=== PATIENT | female | born 1960 | race Caucasian/White ===

== ENCOUNTER 2017-08-08 19:20 | Emergency (ER) | payer OTHER ==
[~2017-08-08] VITALS: Ht 157.5 cm; Wt 64.5 kg
[~2017-08-08 19:20] MED LIST: HYDR-3498 PO; IBUP-1542 PO
[2017-08-08 19:27] VITALS: Ht 157.5 cm; Wt 64.5 kg
--- NOTE | 2017-08-09 01:56 | RADRPT ---
PROCEDURE: CT abdomen and pelvis without intravenous contrast. CLINICAL INDICATION: Pain. TECHNIQUE: CT of the abdomen/pelvis was performed utilizing axial images with reconstructions in s agittal and coronal planes. The administered radiation dose is CTDI 8.6 mGy, DLP 463 mGy-cm. One or more of the following dose reduction techniques were used: automated exposure control, adjustment of the mA and/or kV according to patient size and/or use of iterative reconstruction technique. COMPARISON: No pertinent prior examinations were submitted for comparison. FINDINGS: Visualized Chest: The visualized lung bases are clear. Abdomen: The liver, spleen, pancreas, gallbladder,and adrenal glands are unremarkable. The kidneys are without hydronephrosis. No definite urinary calculi are seen. There is no evidence of bowel obstruction. The appendix is normal. No intra-abdominal free air is seen. There is no evidence of intra-abdominal adenopathy or free fluid. Pelvis: Prior hysterectomy is noted. The urinary bladder is unremarkable. There is no pelvic adenopathy of free fluid. Osseous structures: Some scoliosis of the lumbar spine is noted. IMPRESSION: No acute findings. RPTAT: HIKT .Haroon Pierce MD, Date Time Electronically viewed and signed by .Haroon Pierce MD, on 08/09/2017 01:56 .T/
[2017-08-09 02:23] LABS: BASOPHIL # 0.1 10^3/ul (0.0-0.1); BASOPHILS % 0.8 % (0.0-2.0); EOSINOPHILS # 0.1 10^3/ul (0.0-0.5); EOSINOPHILS % 1.4 % (0.0-7.0); HEMATOCRIT 39.1 % (37.0-47.0); LYMPHOCYTES # 2.8 10^3/ul (0.8-2.9); LYMPHOCYTES % 43.5 % (15.0-51.0); MEAN CORPUSCULAR HEMOGLOBIN 31.1 pg (29.0-33.0); MEAN CORPUSCULAR HGB CONC 33.2 g/dl (32.0-37.0); MEAN CORPUSCULAR VOLUME 93.5 fl (82.0-101.0); MONOCYTE # 0.6 10^3/ul (0.3-0.9); MONOCYTES % 8.6 % (0.0-11.0); NEUTROPHILS % 45.5 % (39.0-77.0); PLATELET COUNT 261 10^3/UL (140-415); RED BLOOD COUNT 4.18 10^6/ul (4.20-5.40); RED CELL DISTRIBUTION WIDTH 13.2 % (11.5-14.5); WHITE BLOOD COUNT 6.5 10^3/ul (4.8-10.8)
[2017-08-09 02:38] LABS: INR 0.93; PROTIME 12.5 Sec (12.2-14.2)
[2017-08-09 02:39] LABS: PARTIAL THROMBOPLASTIN TIME 28.8 Sec (25.0-35.0)
[2017-08-09 02:51] LABS: ALBUMIN 4.4 g/dl (3.3-4.9); ALBUMIN/GLOBULIN RATIO 1.29; BILIRUBIN,INDIRECT 0.1 mg/dl (0-1.1); BILIRUBIN,TOTAL 0.1 mg/dl (0.2-1.3); CALCIUM 9.3 mg/dl (8.4-10.2); CREATININE 0.85 mg/dl (0.44-1.00); POTASSIUM 3.8 mmol/L (3.5-5.1); TOTAL PROTEIN 7.8 g/dl (6.1-8.1)
--- NOTE | 2017-08-09 04:17 | ERD ---
ER Documentation Chief Complaint Chief Complaint blood in stool x 4 days HPI This is a 56-year-old female comes in blood in stool 4 days. No nausea no vomiting no chills. No abdominal pain. No other current complaints. ROS All systems reviewed and are negative except as per history of present illness. Medications Home Meds Active Scripts Hydrocodone Bit-Acetaminophen* ([place]*) 5-325 Mg Tab, 1 TAB PO Q6 Y for PAIN, # 14 TAB Prov:KWAKU NORWOOD PA-C 05/14/15 Ibuprofen* (Motrin*) 600 Mg Tab, 600 MG PO Q6H Y for PAIN AND OR ELEVATED TEMP, #30 Prov:KWAKU NORWOOD PA-C 05/14/15 Allergies Allergies: Coded Allergies: No Known Allergy (Unverified , 08/08/17) PMhx/Soc History of Surgery: Yes (total hysterectomy, thyroidectomy) Hx Neurological Disorder: Yes (migraines) Hx Alcohol Use: Yes (1x per mo) Hx Substance Use: No Hx Tobacco Use: No Smoking Status: Never smoker Physical Exam Vitals Vital Signs Date Time Temp Pulse Resp B/P Pulse Ox O2 Delivery O2 Flow Rate FiO2 08/08/17 19:27 97.6 96 20 132/82 97 Physical Exam Const: [] Head: Atraumatic Eyes: Normal Conjunctiva ENT: Normal External Ears, Nose and Mouth. Neck: Full range of motion..~ No meningismus. Resp: Clear to auscultation bilaterally Cardio: Regular rate and rhythm, no murmurs Abd: Soft, non tender, non distended. Normal bowel sounds Skin: No petechiae or rashes Back: No midline or flank tenderness Ext: No cyanosis, or edema Neur: Awake and alert Psych: Normal Mood and Affect Result Diagram: 08/09/1713608/09/17136 Results 24 hrs Laboratory Tests Test 08/09/17 01:37 White Blood Count 6.510^3/ul Red Blood Count 4.1810^6/ul Hemoglobin 13.0g/dl Hematocrit 39.1% Mean Corpuscular Volume 93.5fl Mean Corpuscular Hemoglobin 31.1pg Mean Corpuscular Hemoglobin Concent 33.2g/dl Red Cell Distribution Width 13.2% Platelet Count 65738^3/UL Mean Platelet Volume 10.0fl Neutrophils % 45.5% Lymphocytes % 43.5% Monocytes % 8.6% Eosinophils % 1.4% Basophils % 0.8% Nucleated Red Blood Cells % 0.0/100WBC Neutrophils # 3.010^3/ul Lymphocytes # 2.810^3/ul Monocytes # 0.610^3/ul Eosinophils # 0.110^3/ul Basophils # 0.110^3/ul Nucleated Red Blood Cells # 0.010^3/ul Prothrombin Time 12.5Sec Prothrombin Time Ratio 1.0 INR International Normalized Ratio 0.93 Activated Partial Thromboplast Time 28.8Sec Sodium Level 145mmol/L Potassium Level 3.8mmol/L Chloride Level 106mmol/L Carbon Dioxide Level 28mmol/L Anion Gap 15 Blood Urea Nitrogen 19mg/dl Creatinine 0.85mg/dl Glucose Level 91mg/dl Calcium Level 9.3mg/dl Total Bilirubin 0.1mg/dl Direct Bilirubin 0.00mg/dl Indirect Bilirubin 0.1mg/dl Aspartate Amino Transf (AST/SGOT) 27IU/L Alanine Aminotransferase (ALT/SGPT) 38IU/L Alkaline Phosphatase 74IU/L Total Protein 7.8g/dl Albumin 4.4g/dl Globulin 3.40g/dl Albumin/Globulin Ratio 1.29 Lipase 170U/L Procedures/MDM Medical decision-making: This 56-year-old female who has what looks to be hemorrhoids. At this point is clinically stable. Patient be discharged from a stool softeners and Proctofoam. Patient will return in 8 hours for serial exams. Told return sooner for any bleeding. Departure Diagnosis: Primary Impression: Occult blood in stools Condition: Stable BRIAN MACKEY Aug 09, 2017 04:17
[2017-08-09] MEDS ORDERED: DOCU-144 PO (04:18)
[2017-08-09] MEDS ORDERED: HYDR10FO PR (04:18)
[2017-08-09 04:33] VITALS: BP 126/77; PULSE 68; RESP 20; TEMP 98.1
== END 2017-08-09 04:34 | disposition home or self-care (01) ==
LOC: E/R 19:20
DX: K92.1 Melena (principal)
CPT/HCPCS: 36415; 74176; 80053; 83690; 85025; 85610; 85730; Z7502

== ENCOUNTER 2018-10-12 07:59 | Emergency (ER) | END 2018-10-12 09:41 | disposition home or self-care (01) ==

== ENCOUNTER 2019-05-20 10:05 | Emergency (ER) | payer BC, OTHER ==
[~2019-05-20] VITALS: Ht 157.5 cm; Wt 6.4 kg
[~2019-05-20 10:05] MED LIST changes: +BENZ-6 PO; +DOCU-144 PO; +GUAI5SYR2 PO; +HYDR10FO PR; +NITR-58 PO
[2019-05-20 10:06] VITALS: Ht 157.5 cm; Wt 6.4 kg
--- NOTE | 2019-05-20 11:26 | ERD ---
ER Documentation Chief Complaint Chief Complaint cough & fever x1wk, worse last night HPI 58-year-old female presents to ED for cough x2 weeks. She reports that her boss was recently diagnosed with pneumonia for the past 2 weeks as well and she has concerns that she may have pneumonia. She reports the cough is been mostly dry. She has not recorded any fevers but states she has felt warm at nights. She has not taken any medication for her cough. She denies smoking, asthma history, COPD history. Her only past medical history is chronic back pain. ROS All systems reviewed and are negative except as per history of present illness. Medications Home Meds Active Scripts Guaifenesin-Dextromethorphan* (Robitussin* DM) 100MG/10MG/5ML Syrup, 10 ML PO Q4H PRN for COUGH for 7 Days, ML Prov:JOY ROBLEDO PA-C 05/20/19 Benzonatate* (Tessalon Perle*) 100 Mg Capsule, 100 MG PO Q8H PRN for COUGH, #30 CAP Prov:JOY ROBLEDO PA-C 05/20/19 Nitrofurantoin Monohyd Macrocr* (Macrobid*) 100 Mg Capsr, 100 MG PO BID for 5 Days, CAP Prov:GARCÍA ROGEL PA-C 10/12/18 Docusate Sodium* (Colace*) 100 Mg Capsule, 100 MG PO TID, #30 CAP Prov:BRIAN MACKEY 08/09/17 Hydrocortisone/Pramoxine* (Proctofoam-HC*) 1%-10 Gm Foam, 1 APPLIC CO BID for 7 Days, EA Prov:BRIAN MACKEY 08/09/17 Hydrocodone Bit-Acetaminophen* ([place]*) 5-325 Mg Tab, 1 TAB PO Q6 PRN for PAIN, #14 TAB Prov:KWAKU NORWOOD PA-C 05/14/15 Ibuprofen* (Motrin*) 600 Mg Tab, 600 MG PO Q6H PRN for PAIN AND OR ELEVATED TEMP, #30 Prov:KWAKU NORWOOD PA-C 05/14/15 Allergies Allergies: Coded Allergies: No Known Allergy (Unverified , 05/20/19) PMhx/Soc History of Surgery: Yes (total hysterectomy, thyroidectomy) Hx Neurological Disorder: Yes (migraines) Hx Alcohol Use: Yes (1x per mo) Hx Substance Use: No Hx Tobacco Use: No Smoking Status: Never smoker FmHx Family History: No diabetes Physical Exam Vitals Vital Signs Date Temp Pulse Resp B/P (MAP) Pulse Ox O2 O2 Flow FiO2 Time Delivery Rate 05/20/19 95 21 122/67 97 Room Air 11:31 (85) 05/20/19 98.8 109 20 125/72 98 10:06 (89) Physical Exam Const: No acute distress Head: Atraumatic Neck: Full range of motion. Resp: Clear to auscultation bilaterally Cardio: Regular rate and rhythm, Abd: Soft, non tender, non distended. Ext: No cyanosis, or edema Neur: Awake and alert Psych: Normal Mood and Affect Result Diagram: 05/20/19 1057 05/20/19 1057 Results 24 hrs Laboratory Tests Test 05/20/19 10:57 White Blood Count 7.3 10^3/ul Red Blood Count 4.60 10^6/ul Hemoglobin 14.3 g/dl Hematocrit 42.6 % Mean Corpuscular Volume 92.6 fl Mean Corpuscular Hemoglobin 31.1 pg Mean Corpuscular Hemoglobin Concent 33.6 g/dl Red Cell Distribution Width 13.2 % Platelet Count 257 10^3/UL Mean Platelet Volume 9.8 fl Immature Granulocytes % 0.300 % Neutrophils % 64.2 % Lymphocytes % 24.3 % Monocytes % 10.1 % Eosinophils % 0.3 % Basophils % 0.8 % Nucleated Red Blood Cells % 0.0 /100WBC Immature Granulocytes # 0.020 10^3/ul Neutrophils # 4.7 10^3/ul Lymphocytes # 1.8 10^3/ul Monocytes # 0.7 10^3/ul Eosinophils # 0.0 10^3/ul Basophils # 0.1 10^3/ul Nucleated Red Blood Cells # 0.0 10^3/ul Sodium Level 142 mmol/L Potassium Level 4.4 mmol/L Chloride Level 105 mmol/L Carbon Dioxide Level 26 mmol/L Anion Gap 11 Blood Urea Nitrogen 12 mg/dl Creatinine 0.99 mg/dl Est Glomerular Filtrat Rate mL/min 58 mL/min Glucose Level 103 mg/dl Calcium Level 9.6 mg/dl Procedures/MDM ED COURSE: The patient was stable throughout ED course. I kept the patient informed of laboratory and diagnostic imaging results throughout the ED course. DIAGNOSTIC IMAGING: Read by radiologist. PROCEDURE: XR Chest. CLINICAL INDICATION: Pain . TECHNIQUE: Single frontal chest x-ray. COMPARISON: None. FINDINGS: The lungs are clear of acute infiltrates, edema, effusions, or masses.. The cardiomediastinal silhouette is unremarkable. The osseous structures are intact. IMPRESSION: No acute cardiopulmonary disease. RPTAT: QQ .Edward Decker MD, MD Date Time Electronically viewed and signed by .Edward Decker MD, on 05/20/2019 11:19 MEDICAL DECISION MAKING: Patient is a 58-year-old female complaining of cough x2 weeks. I have low suspicion for pneumonia, pulmonary embolism, pleural effusion, pneumothorax, ACS. Patient has been reporting a dry cough but states that her boss has been recently diagnosed with pneumonia and she has concerns that she may also have pneumonia. She is asking for us to check for pneumonia. On physical exam she had a O2 sat of 90% with no signs of respiratory distress. The x-ray imaging was done showing no signs of cardiopulmonary abnormalities. Lab work was within normal limits. At this time I think patient is suffering from an acute cough. She is discharged with Ladonna Casey and Dhruv. All questions answered. Vital signs were reviewed. Patient is afebrile. Patient was not hypoxic. Patient was hemodynamically stable. Patient was told to follow up with primary care for further care and management. PRESCRIPTION: Sabrina Franco-ANGEL DISCHARGE: At this time, patient is stable for discharge and outpatient management. I have instructed the patient to follow-up with their primary care physician in 1-2 days. I have discussed with the patient the possibility of needing to see a specialist for further workup and imaging studies if symptoms persist. I have instructed the patient to promptly return to the ER for any new or worsening symptoms including increased pain, fever, nausea, vomiting, weakness or LOC. The patient expressed understanding of and agreement with this plan. All questions were answered. Home care instructions were provided. Disclaimer: Inadvertent spelling and grammatical errors are likely due to EHR/dictation software use and do not reflect on the overall quality of patient care. Also, please note that the electronic time recorded on this note does not necessarily reflect the actual time of the patient encounter. Departure Diagnosis: Primary Impression: Cough Condition: Fair Patient Instructions: Cough, Chronic, Uncertain Cause, (Adult) Referrals: [facility] YOU HAVE RECEIVED A MEDICAL SCREENING EXAM AND THE RESULTS INDICATE THAT YOU DO NOT HAVE A CONDITION THAT REQUIRES URGENT TREATMENT IN THE EMERGENCY DEPARTMENT. FURTHER EVALUATION AND TREATMENT OF YOUR CONDITION CAN WAIT UNTIL YOU ARE SEEN IN YOUR DOCTORS OFFICE WITHIN THE NEXT 1-2 DAYS. IT IS YOUR RESPONSIBILITY TO MAKE AN APPOINTMENT FOR FOLOW-UP CARE. IF YOU HAVE A PRIMARY DOCTOR --you should call your primary doctor and schedule an appointment IF YOU DO NOT HAVE A PRIMARY DOCTOR YOU CAN CALL OUR PHYSICIAN REFERRAL HOTLINE AT IF YOU CAN NOT AFFORD TO SEE A PHYSICIAN YOU CAN CHOSE FROM THE FOLLOWING [facility] [address] [facility] [facility] [address] [facility]. [facility] [address] [facility] [address] [facility] [address] [facility] [address] [facility] [facility] [address] [facility]. [facility] YOU HAVE RECEIVED A MEDICAL SCREENING EXAM AND THE RESULTS INDICATE THAT YOU DO NOT HAVE A CONDITION THAT REQUIRES URGENT TREATMENT IN THE EMERGENCY DEPARTMENT. FURTHER EVALUATION AND TREATMENT OF YOUR CONDITION CAN WAIT UNTIL YOU ARE SEEN IN YOUR DOCTORS OFFICE WITHIN THE NEXT 1-2 DAYS. IT IS YOUR RESPONSIBILITY TO MAKE AN APPOINTMENT FOR FOLOW-UP CARE. IF YOU HAVE A PRIMARY DOCTOR --you should call your primary doctor and schedule and appointment IF YOU DO NOT HAVE A PRIMARY DOCTOR YOU CAN CALL OUR PHYSICIAN REFERRAL HOTLINE AT . IF YOU CAN NOT AFFORD TO SEE A PHYSICIAN YOU CAN CHOSE FROM THE FOLLOWING [facility] INSTITUTIONS: [facility] [address] [place] [address] [facility] [address] [place] [address] [address] Additional Instructions: Call your primary care doctor TOMORROW for an appointment during the next 1-2 days.See the doctor sooner or return here if your condition worsens before your appointment time. JOY ROBLEDO PA-C May 20, 2019 11:26
[2019-05-20 11:31] VITALS: BP 122/67; PULSE 95; RESP 21
== END 2019-05-20 11:49 | disposition home or self-care (01) ==
LOC: FTE 10:05
DX: R05 Cough (principal)
CPT/HCPCS: 36415; 71045; 80048; 85025

== ENCOUNTER 2019-05-21 16:58 | Emergency (ER) | payer BC ==
[~2019-05-21] VITALS: Ht 157.5 cm; Wt 63.3 kg
[2019-05-21 17:03] VITALS: Ht 157.5 cm; Wt 63.3 kg
[2019-05-21] MEDS ORDERED: IBUPROFEN 600 MG TAB PO ONE (18:00)
--- NOTE | 2019-05-21 18:06 | ERD ---
ER Documentation Chief Complaint Chief Complaint cough, and fever today HPI 58-year-old female presents to ED for fever and cough. She was seen in the ED yesterday by myself as well to rule out possible pneumonia infection. She did not have pneumonia. She reports that she felt warm today and had a temperature of around 100 F. She also reported a headache. She has not taken any medication for her fever or headache. She is taking her medication for Tessalon Perles and Robitussin-DM. She denies any other changes or new symptoms at this time. ROS All systems reviewed and are negative except as per history of present illness. Medications Home Meds Active Scripts Ibuprofen* (Motrin*) 600 Mg Tab, 600 MG PO Q6H PRN for PAIN AND OR ELEVATED TEMP, #30 TAB Prov:JOY ROBLEDO PA-C 05/21/19 Guaifenesin-Dextromethorphan* (Robitussin* DM) 100MG/10MG/5ML Syrup, 10 ML PO Q4H PRN for COUGH for 7 Days, ML Prov:JOY ROBLEDO PA-C 05/20/19 Benzonatate* (Tessalon Perle*) 100 Mg Capsule, 100 MG PO Q8H PRN for COUGH, #30 CAP Prov:JOY ROBLEDO PA-C 05/20/19 Nitrofurantoin Monohyd Macrocr* (Macrobid*) 100 Mg Capsr, 100 MG PO BID for 5 Days, CAP Prov:GARCÍA ROGEL PA-C 10/12/18 Docusate Sodium* (Colace*) 100 Mg Capsule, 100 MG PO TID, #30 CAP Prov:BRIAN MACKEY 08/09/17 Hydrocortisone/Pramoxine* (Proctofoam-HC*) 1%-10 Gm Foam, 1 APPLIC RI BID for 7 Days, EA Prov:BRIAN MACKEY 08/09/17 Hydrocodone Bit-Acetaminophen* ([place]*) 5-325 Mg Tab, 1 TAB PO Q6 PRN for PAIN, #14 TAB Prov:KWAKU NORWOOD PA-C 05/14/15 Ibuprofen* (Motrin*) 600 Mg Tab, 600 MG PO Q6H PRN for PAIN AND OR ELEVATED TEMP, #30 Prov:KWAKU NORWOOD PA-C 05/14/15 Allergies Allergies: Coded Allergies: No Known Allergy (Unverified , 05/20/19) PMhx/Soc History of Surgery: Yes (total hysterectomy, thyroidectomy) Hx Neurological Disorder: Yes (migraines) Hx Alcohol Use: Yes (1x per mo) Hx Substance Use: No Hx Tobacco Use: No Smoking Status: Never smoker FmHx Family History: No diabetes Physical Exam Vitals Vital Signs Date Temp Pulse Resp B/P (MAP) Pulse Ox O2 O2 Flow FiO2 Time Delivery Rate 05/21/19 100.5 106 18 122/74 96 Room Air 18:14 (90) 05/21/19 100.6 114 20 127/60 96 17:03 (82) Physical Exam Const: No acute distress Head: Atraumatic Eyes: Normal Conjunctiva ENT: Normal External Ears, Nose and Mouth. Neck: Full range of motion. Resp: Clear to auscultation bilaterally Cardio: Regular rate and rhythm, Abd: Soft, non tender, non distended. Neur: Awake and alert Psych: Normal Mood and Affect Results 24 hrs Current Medications Medications Dose Sig/[place] Start Time Status Last (Trade) Ordered Route PRN Stop Time Admin Dose Reason Admin Ibuprofen 600 mg ONCE ONCE 05/21/19 DC 05/21/19 (Motrin) PO 18:00 05/21/19 17:49 18:01 Procedures/MDM ED COURSE: The patient was stable throughout ED course. I kept the patient informed of laboratory and diagnostic imaging results throughout the ED course. PROCEDURES: Rapid strep: Negative MEDICATIONS GIVEN: Motrin Patient tolerated medication well with no adverse reactions. Patient reported i mprovement in pain. MEDICAL DECISION MAKING: Patient is a 58-year-old female who presents ED with cough, fever, headache. I have low suspicion for pneumonia, strep pharyngitis, otitis externa, otitis media, epiglottitis, mastoiditis. Patient was seen yesterday by me to rule out possible pneumonia infection. Chest x-ray done yesterday along with laboratory work were negative. Patient received her medicine for Tessalon Perles and Robitussin-DM and just began taking it. She reports a fever of 100 degrees at home and a new onset of a headache. Patient was given Motrin in the ED which improved her symptoms. Rapid strep test was done which was negative. Patient was this charged with outpatient Motrin and to continue her previously prescribed prescriptions. All questions were answered. Patient was recommended to get plenty of rest and drink lots of fluids. Vital signs were reviewed. Patient is afebrile. Patient was not hypoxic. Patient was hemodynamically stable. Patient was told to follow up with primary care for further care and management. PRESCRIPTION: Motrin DISCHARGE: At this time, patient is stable for discharge and outpatient management. I have instructed the patient to follow-up with their primary care physician in 1-2 days. I have discussed with the patient the possibility of needing to see a specialist for further workup and imaging studies if symptoms persist. I have instructed the patient to promptly return to the ER for any new or worsening symptoms including increased pain, fever, nausea, vomiting, weakness or LOC. The patient expressed understanding of and agreement with this plan. All questions were answered. Home care instructions were provided. Disclaimer: Inadvertent spelling and grammatical errors are likely due to EHR/dictation software use and do not reflect on the overall quality of patient care. Also, please note that the electronic time recorded on this note does not necessarily reflect the actual time of the patient encounter. Departure Diagnosis: Primary Impression: Bronchitis Condition: Fair Patient Instructions: Bronchitis, No Antibiotic (Adult) Referrals: [facility] YOU HAVE RECEIVED A MEDICAL SCREENING EXAM AND THE RESULTS INDICATE THAT YOU DO NOT HAVE A CONDITION THAT REQUIRES URGENT TREATMENT IN THE EMERGENCY DEPARTMENT. FURTHER EVALUATION AND TREATMENT OF YOUR CONDITION CAN WAIT UNTIL YOU ARE SEEN IN YOUR DOCTORS OFFICE WITHIN THE NEXT 1-2 DAYS. IT IS YOUR RESPONSIBILITY TO MAKE AN APPOINTMENT FOR FOLOW-UP CARE. IF YOU HAVE A PRIMARY DOCTOR --you should call your primary doctor and schedule an appointment IF YOU DO NOT HAVE A PRIMARY DOCTOR YOU CAN CALL OUR PHYSICIAN REFERRAL HOTLINE AT IF YOU CAN NOT AFFORD TO SEE A PHYSICIAN YOU CAN CHOSE FROM THE FOLLOWING [facility] [address] [facility] [address] [facility] [address] [facility] [address] [facility] [address] [facility] [address] [facility] [facility] YOU HAVE RECEIVED A MEDICAL SCREENING EXAM AND THE RESULTS INDICATE THAT YOU DO NOT HAVE A CONDITION THAT REQUIRES URGENT TREATMENT IN THE EMERGENCY DEPARTMENT. FURTHER EVALUATION AND TREATMENT OF YOUR CONDITION CAN WAIT UNTIL YOU ARE SEEN IN YOUR DOCTORS OFFICE WITHIN THE NEXT 1-2 DAYS. IT IS YOUR RESPONSIBILITY TO MAKE AN APPOINTMENT FOR FOLOW-UP CARE. IF YOU HAVE A PRIMARY DOCTOR --you should call your primary doctor and schedule and appointment IF YOU DO NOT HAVE A PRIMARY DOCTOR YOU CAN CALL OUR PHYSICIAN REFERRAL HOTLINE AT . IF YOU CAN NOT AFFORD TO SEE A PHYSICIAN YOU CAN CHOSE FROM THE FOLLOWING [facility] INSTITUTIONS: [facility] [address] [place] [address] [facility] [address] [place], [place] [id number] [place] [address] [address] [place] [address] Additional Instructions: Call your primary care doctor TOMORROW for an appointment during the next 1-2 days.See the doctor sooner or return here if your condition worsens before your appointment time. JOY ROBLEDO PA-C May 21, 2019 18:06
[2019-05-21 18:14] VITALS: BP 122/74; PULSE 106; RESP 18
== END 2019-05-21 18:14 | disposition home or self-care (01) ==
LOC: FTE 16:58
DX: J40 Bronchitis, not specified as acute or chronic (principal)
CPT/HCPCS: 87880; 99283